=== PATIENT | male | born 1995 | race Two or more races ===

== ENCOUNTER 2021-10-03 13:18 | Emergency (ER) | payer SELFPAY ==
[~2021-10-03] VITALS: Ht 172.7 cm; Wt 72.7 kg
[2021-10-03 14:17] VITALS: BP 119/77
== END 2021-10-03 14:47 ==
LOC: ER 13:18 → EDBD 13:18 → ER 14:47
DX: Z02.89 Encounter for other administrative examinations (principal); V89.2XXA Person injured in unspecified motor-vehicle accident, traffic, initial encounter; Y93.89 Activity, other specified; Y92.89 Other specified places as the place of occurrence of the external cause; Y99.8 Other external cause status; Z72.89 Other problems related to lifestyle
CPT/HCPCS: 99283